=== PATIENT | female | born 1980 | race Caucasian/White ===

== ENCOUNTER 2017-08-08 15:16 | Emergency (ER) | payer OTHER ==
[~2017-08-08] VITALS: Ht 160 cm; Wt 63.5 kg
== END 2017-08-09 15:49 | disposition home or self-care (01) ==
LOC: EMR PED 15:16 → CPU-OBS 15:41 → ER 15:41
DX: R07.89 Other chest pain (principal); I47.1 Supraventricular tachycardia; I49.8 Other specified cardiac arrhythmias; R00.0 Tachycardia, unspecified